=== PATIENT | male | born 1950 | race Caucasian/White ===

== ENCOUNTER 2021-02-16 08:26 | Emergency (ER) | payer OTHER, SELFPAY ==
[2021-02-16] VITALS (55 sets, daily range): BP systolic 89–163; BP diastolic 55–106; PULSE 73–167; RESP 17–56; TEMP 36.9; O2SAT 90–100; BMI 19.2
--- NOTE | 2021-02-16 08:33 | DI.RAD.S_ITS ---
PROCEDURE: XR CHEST 1V INDICATIONS: SOB TECHNIQUE: One view of the chest was acquired. COMPARISON: None. FINDINGS: Surgical changes and devices: None. Lungs and pleura: There is hyperinflation. Rounded appearance of bilateral costophrenic angles are seen suggestive of mild pleural thickening versus trace pleural effusion. No definite focal infiltrate. No pneumothorax. Mediastinum: Mediastinal contours appear normal. Heart size is normal. Bones and chest wall: No suspicious bony lesions. Overlying soft tissues appear unremarkable. IMPRESSION: COPD. No focal infiltrate or pneumothorax. Dictated by: River Perdomo M.D. on 02/16/2021 at 9:11 Approved by: River Perdmoo M.D. on 02/16/2021 at 9:13
--- NOTE | 2021-02-16 08:36 | ED_ITS ---
HPI - General Adult General Chief complaint: Shortness of Breath/Dyspnea Stated complaint: Difficulty breathing, heart palps Time Seen by Provider: 02/16/21 08:28 Source: patient and family Mode of arrival: Wheelchair Limitations: no limitations History of Present Illness HPI narrative: Patient is a 70-year-old has no diagnosed medical problems. Is a current smoker.. Not on home oxygen. Only takes a daily multivitamin here with family for evaluation of shortness of breath and heart palpitations. Per the symptoms have been progressively worsening over the past couple days but significantly worse over the past 24 hours. No fevers. Has been coughing. Vomited once because of the coughing. No abdominal pain. No changes in bowel habits. No urinary symptoms. No headache. No prior no history of heart attacks. No history of strokes. Not on blood thinners. No rashes. Related Data Home Medications Medication Instructions Recorded Confirmed multivitamin,[id number] 1 tab PO DAILY 02/16/21 02/16/21 Allergies Allergy/AdvReac Type Severity Reaction Status Date / Time No Known Drug Allergies Allergy Verified 02/16/21 08:39 Review of Systems Constitutional Comments: No headaches, no fevers Eyes Eyes: Reports system reviewed and no additional complaints, except as documented ENT Ears, Nose, Mouth, and Throat: Reports system reviewed and no additional complaints, except as documented Cardiovascular Comments: No chest pain but is having palpitations Respiratory Comments: Shortness of breath and cough Gastrointestinal Comments: Vomited 1 time because of the coughing, no abdominal complaints Genitourinary Comments: No urinary symptoms Musculoskeletal Musculoskeletal: Reports system reviewed and no additional complaints, except as documented Integumentary/Breasts Skin/Breast: Reports system reviewed and no additional complaints, except as documented Neurologic Neurologic: Reports system reviewed and no additional complaints, except as documented Endocrine Endocrine: Reports system reviewed and no additional complaints, except as documented Hematologic/Lymphatic On Anticoagulants: No Allergic/Immunologic Allergic/Immunologic: Reports system reviewed and no additional complaints, exce pt as documented Patient History Medical History Patient denies medical problems Social History (Updated 02/16/21 @ 08:39 by Sekou Villatoro DO) marital status: Smoking Status: Current every day smoker Exam Initial Vital Signs Initial Vital Signs: Vital Signs Pulse Rate 118 H 02/16/21 08:32 Respiratory Rate 33 H 02/16/21 08:32 Blood Pressure 156/84 H 02/16/21 08:32 Pulse Oximetry 92 02/16/21 08:32 Const General: cooperative, in distress and ill appearing Nutritional Appearance: thin HENMT Head: normal to inspection and normocephalic Eyes General: appearance normal, both eyes and all related structures Chest Other: Barrel chested Resp Effort & Inspection: no audible wheezes, no cough, labored, respiratory distress, retractions, tachypneic and tripod positioning Cardio Rate: regular rate Rhythm: regular rhythm GI Inspection: normal to inspection Palpation: soft Back/Spine/Pelvis Back: normal to inspection Skin General: no rashes or lesions noted Neuro General: patient alert, patient awake, patient oriented x3 and moves all extremities Extrem General: normal to inspection and capillary refill normal Psych Appearance: grossly normal and well kempt Scores GCS Ray coma scale eye opening: Spontaneous Yanira coma scale verbal response: Orientated Yanira coma scale motor response: Obey commands Ray coma scale total score: 15 Course Orders Ordered: ED Orders 02/16/21 10:26 EKG-12 Lead Routine 02/16/21 10:58 EKG-12 Lead Routine 02/16/21 11:02 CT angio chest PE protocol Stat 02/16/21 11:23 ABG [Arterial Blood Gas] Stat 02/16/21 15:11 Urinalysis and Microscopic Stat Urine Culture Stat 02/16/21 16:55 Lactate (Lactic Acid) Stat Diltiazem HCl 125 mg/ Sodium (Chloride) 125 mls @ 5 mls/hr IV TITRATE TARYN; Protocol Last Titration: 02/16/21 16:47 Dose: 5 mg/hr, 5 mls/hr Documented by: Titration: 02/16/21 13:10 Dose: 10 mg/hr, 10 mls/hr Documented by: Admin: 02/16/21 12:10 Dose: 5 mg/hr, 5 mls/hr Documented by: KSCHERE Sodium Chloride (Normal Saline 0.9%) 1,000 mls @ 100 mls/hr IV BOLUS ONE Stop: 02/16/21 22:04 Last Admin: 02/16/21 12:10 Dose: 100 mls/hr Documented by: KSCHERE Sodium Chloride (Normal Saline 0.9%) 1,000 mls @ 1,000 mls/hr IV BOLUS ONE Stop: 02/16/21 18:17 Last Admin: 02/16/21 17:24 Dose: 1,000 mls/hr Documented by: OLIVE Discontinued Medications Albuterol (Albuterol 2.5 Mg/3 Ml Neb (Adult)) 20 mg INH NOW ONE Stop: 02/16/21 09:14 Last Admin: 02/16/21 09:28 Dose: Not Given Documented by: ALEX Albuterol (Albuterol 2.5 Mg/3 Ml Neb (Adult)) 12.5 mg INH NOW ONE Stop: 02/16/21 09:28 Last Admin: 02/16/21 09:30 Dose: 12.5 mg Documented by: ALEX Albuterol (Albuterol 2.5 Mg/3 Ml Neb (Adult)) 2.5 mg INH NOW ONE Stop: 02/16/21 18:04 Albuterol/Ipratropium (Albuterol/Ipratropium 3 Ml Ampul) 3 ml INH Q20M TARYN Stop: 02/16/21 09:26 Last Admin: 02/16/21 09:30 Dose: 3 ml Documented by: Admin: 02/16/21 08:55 Dose: 3 ml Documented by: Admin: 02/16/21 08:45 Dose: 3 ml Documented by: ALEX Diltiazem HCl (Diltiazem 5 Mg/Ml Sdv) 10 mg IV NOW ONE Stop: 02/16/21 11:17 Last Admin: 02/16/21 11:22 Dose: 10 mg Documented by: OLIVE Sodium Chloride (Normal Saline 0.9%) 1,000 mls @ 500 mls/hr IV BOLUS ONE Stop: 02/16/21 11:21 Last Infusion: 02/16/21 12:14 Dose: 0 mls/hr Documented by: Admin: 02/16/21 09:25 Dose: 500 mls/hr Documented by: OLIVE Azithromycin 500 mg/ Dextrose 250 mls @ 250 mls/hr IV NOW ONE Stop: 02/16/21 13:33 Last Infusion: 02/16/21 15:01 Dose: 0 mls/hr Documented by: Admin: 02/16/21 13:41 Dose: 250 mls/hr Documented by: LINDA Sodium Chloride (Normal Saline 0.9%) 1,000 mls @ 500 mls/hr IV BOLUS ONE Stop: 02/16/21 15:44 Last Infusion: 02/16/21 14:55 Dose: 0 mls/hr Documented by: Admin: 02/16/21 13:48 Dose: 500 mls/hr Documented by: OLIVE Ceftriaxone Sodium 1,000 mg/ (Sodium Chloride) 100 mls @ 200 mls/hr IV NOW ONE Stop: 02/16/21 17:19 Last Admin: 02/16/21 17:33 Dose: 200 mls/hr Documented by: LINDA Methylprednisolone (Methylprednisolone 125 Mg/2 Ml Vial) 125 mg IV NOW ONE Stop: 02/16/21 08:33 Last Admin: 02/16/21 08:46 Dose: 125 mg Documented by: FLACO Vital Signs Vital signs: Vital Signs - 8 hr 02/16/21 10:15 02/16/21 10:29 02/16/21 10:30 Pulse Rate 109 H 106 H 106 H Respiratory Rate 32 H 25 H 34 H Blood Pressure 129/68 120/68 Pulse Oximetry 98 100 98 02/16/21 10:45 02/16/21 10:53 02/16/21 11:00 Pulse Rate 125 H 120 H 157 H Respiratory Rate 28 H 29 H 28 H Blood Pressure 158/65 H 130/60 138/67 Pulse Oximetry 98 98 99 02/16/21 11:07 02/16/21 11:13 02/16/21 11:15 Pulse Rate 99 H 167 H 164 H Respiratory Rate 29 H 28 H Blood Pressure 163/106 H 158/92 H Pulse Oximetry 100 98 97 02/16/21 11:22 02/16/21 11:30 02/16/21 11:45 Pulse Rate 155 H 142 H 151 H Respiratory Rate 33 H 25 H Blood Pressure 156/92 H 89/58 L Pulse Oximetry 97 94 02/16/21 11:47 02/16/21 12:00 02/16/21 12:15 Pulse Rate 156 H 153 H 145 H Respiratory Rate 22 24 24 Blood Pressure 105/76 125/73 115/64 Pulse Oximetry 95 95 98 02/16/21 12:16 02/16/21 12:30 02/16/21 12:45 Pulse Rate 160 H 141 H 145 H Respiratory Rate 24 23 25 H Blood Pressure 107/58 L 126/56 L Pulse Oximetry 95 99 96 02/16/21 13:00 02/16/21 13:10 02/16/21 13:15 Pulse Rate 135 H 157 H 135 H Respiratory Rate 23 25 H 22 Blood Pressure 127/55 L Pulse Oximetry 96 96 96 02/16/21 13:16 02/16/21 13:30 02/16/21 13:45 Pulse Rate 147 H 125 H 120 H Respiratory Rate 23 17 20 Blood Pressure 109/64 113/57 L 113/57 L Pulse Oximetry 96 99 98 02/16/21 14:00 02/16/21 14:15 02/16/21 14:30 Pulse Rate 120 H 116 H 79 Respiratory Rate 20 21 20 Blood Pressure 102/59 L 101/59 L 110/57 L Pulse Oximetry 99 99 98 02/16/21 14:45 02/16/21 15:00 02/16/21 15:15 Pulse Rate 77 97 H 103 H Respiratory Rate 19 38 H 32 H Blood Pressure 103/57 L 107/58 L 114/57 L Pulse Oximetry 97 95 98 02/16/21 15:30 02/16/21 15:45 02/16/21 16:00 Pulse Rate 75 77 74 Respiratory Rate 22 23 23 Blood Pressure 105/58 L 103/57 L 103/58 L Pulse Oximetry 98 98 99 02/16/21 16:15 02/16/21 16:30 02/16/21 16:45 Pulse Rate 74 74 76 Respiratory Rate 26 H 21 27 H Blood Pressure 107/58 L 106/58 L 106/57 L Pulse Oximetry 98 99 98 02/16/21 17:00 02/16/21 17:15 02/16/21 17:30 Pulse Rate 74 73 76 Respiratory Rate 24 20 21 Blood Pressure 106/57 L 103/57 L 104/58 L Pulse Oximetry 98 96 97 02/16/21 17:45 Pulse Rate 73 Respiratory Rate 22 Blood Pressure 104/59 L Pulse Oximetry 95 Medical Decision Making Lab Data Lab results reviewed: Yes I reviewed the patient's lab results. Result diagrams: 02/16/21 08:35 02/16/21 08:35 Labs: Lab Results 02/16/21 02/16/21 02/16/21 Range/Units 08:35 08:35 08:35 WBC 9.5 (4.5-11.0) X10^3/uL RBC 4.69 (4.5-5.9) X10^6/uL Hgb 15.1 (13.5-17.5) g/dL Hct 44.6 (41-53) % MCV 95.0 (80-100) fL MCH 32.3 (26-34) PG MCHC 34.0 (30-36) % RDW 13.6 (11.6-14.8) % Plt Count 315 (150-400) X10^3/uL Neut % (Auto) 80.0 H (50-75) % Lymph % (Auto) 9.9 L (25-40) % [place] % (Auto) 9.4 (3-14) % Eos % (Auto) 0.4 L (2-4) % Baso % (Auto) 0.3 (0-2) % Neut # (Auto) 7600 H (0746-9260) /uL Lymph # (Auto) 900 L (6074-6503) /uL [place] # (Auto) 900 (0-900) /uL Eos # (Auto) 0 (0-450) /uL Baso # (Auto) 0 (0-100) /uL ABG pH (7.35-7.45) ABG pCO2 (35-45) mmHg ABG pO2 (80-100) mmHg ABG HCO3 (22-26) mmol/L ABG Total CO2 (21-31) mmol/L ABG O2 Saturation (95-100) % ABG Base Excess (-2-2) mmol/L FiO2 Sodium 137 (137-145) mmol/L Potassium 4.2 (3.4-5.1) mmol/L Chloride 98 (98-107) mmol/L Carbon Dioxide 29 (22-32) mmol/L BUN 12 (9-20) mg/dL Creatinine 0.64 L (0.66-1.25) mg/dL Estimated GFR > 60.0 (>60) mL/min BUN/Creatinine Ratio 18.8 (6-22) Glucose 131 H (80-110) mg/dL Lactate 2.2 H (0.7-2.1) mmol/L Calcium 9.3 (8.4-10.2) mg/dL Total Bilirubin 0.5 (0.2-1.3) mg/dL AST 28 (17-59) IU/L ALT 27 (<50) IU/L Alkaline Phosphatase 78 (38-126) U/L Total Creatine Kinase 65 (55-170) U/L CK-MB (CK-2) TNP CK-MB (CK-2) Rel Index TNP Troponin I < 0.012 (0.01-0.034) ng/mL NT-Pro-B Natriuret Pep 84 (<125) pg/mL Total Protein 7.7 (6.3-8.2) g/dL Albumin 4.4 (3.5-5.0) g/dL Globulin 3.3 (1.7-4.1) g/dL Albumin/Globulin Ratio 1.3 (1.0-2.8) Lipase 68 (23-300) U/L Urine Color Urine Appearance Urine pH (4.5-8.0) Ur Specific [place] (1.000-1.035) Urine Protein (Negative) Urine Glucose (UA) (Negative) g/dL Urine Ketones (NEGATIVE) Urine Occult Blood (Negative) Urine Nitrate (Negative) Urine Bilirubin (NEGATIVE) Urine Urobilinogen (0.2) E.U./dL Ur Leukocyte Esterase (NEGATIVE) Urine RBC (0-5/HPF) Urine WBC (0-5/HPF) Ur Squamous Epith Cells (0-5/HPF) Amorphous Sediment Urine Bacteria (None) Ur Culture Indicated? SARS-CoV-2 (PCR) (Negative) 02/16/21 02/16/21 02/16/21 Range/Units 08:47 08:47 11:15 WBC (4.5-11.0) X10^3/uL RBC (4.5-5.9) X10^6/uL Hgb (13.5-17.5) g/dL Hct (41-53) % MCV (80-100) fL MCH (26-34) PG MCHC (30-36) % RDW (11.6-14.8) % Plt Count (150-400) X10^3/uL Neut % (Auto) (50-75) % Lymph % (Auto) (25-40) % [place] % (Auto) (3-14) % Eos % (Auto) (2-4) % Baso % (Auto) (0-2) % Neut # (Auto) (1873-3100) /uL Lymph # (Auto) (2757-7613) /uL [place] # (Auto) (0-900) /uL Eos # (Auto) (0-450) /uL Baso # (Auto) (0-100) /uL ABG pH (7.35-7.45) ABG pCO2 (35-45) mmHg ABG pO2 (80-100) mmHg ABG HCO3 (22-26) mmol/L ABG Total CO2 (21-31) mmol/L ABG O2 Saturation (95-100) % ABG Base Excess (-2-2) mmol/L FiO2 Sodium (137-145) mmol/L Potassium (3.4-5.1) mmol/L Chloride (98-107) mmol/L Carbon Dioxide (22-32) mmol/L BUN (9-20) mg/dL Creatinine (0.66-1.25) mg/dL Estimated GFR (>60) mL/min BUN/Creatinine Ratio (6-22) Glucose (80-110) mg/dL Lactate 4.4 H* (0.7-2.1) mmol/L Calcium (8.4-10.2) mg/dL Total Bilirubin (0.2-1.3) mg/dL AST (17-59) IU/L ALT (<50) IU/L Alkaline Phosphatase (38-126) U/L Total Creatine Kinase (55-170) U/L CK-MB (CK-2) CK-MB (CK-2) Rel Index Troponin I (0.01-0.034) ng/mL NT-Pro-B Natriuret Pep (<125) pg/mL Total Protein (6.3-8.2) g/dL Albumin (3.5-5.0) g/dL Globulin (1.7-4.1) g/dL Albumin/Globulin Ratio (1.0-2.8) Lipase (23-300) U/L Urine Color Urine Appearance Urine pH (4.5-8.0) Ur Specific [place] (1.000-1.035) Urine Protein (Negative) Urine Glucose (UA) (Negative) g/dL Urine Ketones (NEGATIVE) Urine Occult Blood (Negative) Urine Nitrate (Negative) Urine Bilirubin (NEGATIVE) Urine Urobilinogen (0.2) E.U./dL Ur Leukocyte Esterase (NEGATIVE) Urine RBC (0-5/HPF) Urine WBC (0-5/HPF) Ur Squamous Epith Cells (0-5/HPF) Amorphous Sediment Urine Bacteria (None) Ur Culture Indicated? SARS-CoV-2 (PCR) Negative Negative (Negative) 02/16/21 02/16/21 02/16/21 Range/Units 11:23 15:11 16:55 WBC (4.5-11.0) X10^3/uL RBC (4.5-5.9) X10^6/uL Hgb (13.5-17.5) g/dL Hct (41-53) % MCV (80-100) fL MCH (26-34) PG MCHC (30-36) % RDW (11.6-14.8) % Plt Count (150-400) X10^3/uL Neut % (Auto) (50-75) % Lymph % (Auto) (25-40) % [place] % (Auto) (3-14) % Eos % (Auto) (2-4) % Baso % (Auto) (0-2) % Neut # (Auto) (5388-4879) /uL Lymph # (Auto) (9061-9264) /uL [place] # (Auto) (0-900) /uL Eos # (Auto) (0-450) /uL Baso # (Auto) (0-100) /uL ABG pH 7.36 (7.35-7.45) ABG pCO2 47.4 H (35-45) mmHg ABG pO2 79 L (80-100) mmHg ABG HCO3 27 H (22-26) mmol/L ABG Total CO2 28 (21-31) mmol/L ABG O2 Saturation 95 (95-100) % ABG Base Excess 1.0 (-2-2) mmol/L FiO2 32 Sodium (137-145) mmol/L Potassium (3.4-5.1) mmol/L Chloride (98-107) mmol/L Carbon Dioxide (22-32) mmol/L BUN (9-20) mg/dL Creatinine (0.66-1.25) mg/dL Estimated GFR (>60) mL/min BUN/Creatinine Ratio (6-22) Glucose (80-110) mg/dL Lactate 5.6 H* (0.7-2.1) mmol/L Calcium (8.4-10.2) mg/dL Total Bilirubin (0.2-1.3) mg/dL AST (17-59) IU/L ALT (<50) IU/L Alkaline Phosphatase (38-126) U/L Total Creatine Kinase (55-170) U/L CK-MB (CK-2) CK-MB (CK-2) Rel Index Troponin I (0.01-0.034) ng/mL NT-Pro-B Natriuret Pep (<125) pg/mL Total Protein (6.3-8.2) g/dL Albumin (3.5-5.0) g/dL Globulin (1.7-4.1) g/dL Albumin/Globulin Ratio (1.0-2.8) Lipase (23-300) U/L Urine Color Yellow Urine Appearance Sl cloudy Urine pH 5.5 (4.5-8.0) Ur Specific [place] <=1.005 (1.000-1.035) Urine Protein Trace H (Negative) Urine Glucose (UA) Trace H (Negative) g/dL Urine Ketones Negative (NEGATIVE) Urine Occult Blood 3+ H (Negative) Urine Nitrate Positive H (Negative) Urine Bilirubin Negative (NEGATIVE) Urine Urobilinogen 0.2 (0.2) E.U./dL Ur Leukocyte Esterase 2+ H (NEGATIVE) Urine RBC 1-5/hpf (0-5/HPF) Urine WBC 10-30/hpf H (0-5/HPF) Ur Squamous Epith Cells 0-1 /hpf (0-5/HPF) Amorphous Sediment 1+ Urine Bacteria Occasional (0-1) (None) Ur Culture Indicated? Specimen cultured SARS-CoV-2 (PCR) (Negative) Imaging Data Chest x-ray: Radiologist's Impression: [address] [id number] ReportSigned Patient: Sekuo Nieto AMR#: [id number]: 9Acct:[id number]/Sex: 70 / MDate of Service: 02/16/21Loc: EDAccession Number: [id number] Procedure: XR chest 1V Ordering Provider: Sekou Villatoro D.O. PROCEDURE: XR CHEST 1V INDICATIONS: SOB TECHNIQUE: One view of the chest was acquired. COMPARISON: None. FINDINGS: Surgical changes and devices: None. Lungs and pleura: There is hyperinflation. Rounded appearance of bilateral costophrenic angles are seen suggestive of mild pleural thickening versus trace pleural effusion. No definite focal infiltrate. No pneumothorax. Mediastinum: Mediastinal contours appear normal. Heart size is normal. Bones and chest wall: No suspicious bony lesions. Overlying soft tissues appear unremarkable. IMPRESSION: COPD. No focal infiltrate or pneumothorax. Dictated by: River Perdomo M.D. on 02/16/2021 at 9:11 Approved by: River Perdomo M.D. on 02/16/2021 at 9:13 Addendum chest x-ray: Radiologist's Impression: [address] [id number] ReportAddendum Patient: Sekou Nieto AMR#: [id number]: 9Acct:[id number]/Sex: 70 / MDate of Service: 02/16/21Loc: EDAccession Number: [id number] Procedure: XR chest 1V Ordering Provider: Sekou Villatoro D.O. ADDENDUMThis report includes an Addendum and supersedes previous reports for this exam. PROCEDURE: XR CHEST 1V INDICATIONS: SOB TECHNIQUE: One view of the chest was acquired. COMPARISON: None. FINDINGS: Surgical changes and devices: None. Lungs and pleura: There is hyperinflation. Rounded appearance of bilateral costophrenic angles are seen suggestive of mild pleural thickening versus trace pleural effusion. No definite focal infiltrate. No pneumothorax. Mediastinum: Mediastinal contours appear normal. Heart size is normal. Bones and chest wall: No suspicious bony lesions. Overlying soft tissues appear unremarkable. IMPRESSION: COPD. No focal infiltrate or pneumothorax. Dictated by: River Perdomo M.D. on 02/16/2021 at 9:11 Approved by: River Perdomo M.D. on 02/16/2021 at 9:13 ADDENDUM: 4.6 x 3.9 cm lobulated soft tissue density is seen projecting at right lung base adjacent to right heart border concerning for right lower lobe mass. Findings were discussed with Dr. Villatoro in the ER at 9:30 a.m. On 02/16/2021. CT of chest will be done for further evaluation of this area. Dictated by: River Perdomo M.D. on 02/16/2021 at 9:29 Approved by: River Perdomo M.D. on 02/16/2021 at 9:31 Addendum Dictated By:River Perdomo MDAddendum Signed By:Addendum Cosigned By:DD/ TD/TT: 02/16/2103/29/928 PROCEDURE: XR CHEST 1V INDICATIONS: SOB TECHNIQUE: One view of the chest was acquired. COMPARISON: None. FINDINGS: Surgical changes and devices: None. Lungs and pleura: There is hyperinflation. Rounded appearance of bilateral costophrenic angles are seen suggestive of mild pleural thickening versus trace pleural effusion. No definite focal infiltrate. No pneumothorax. Mediastinum: Mediastinal contours appear normal. Heart size is normal. Bones and chest wall: No suspicious bony lesions. Overlying soft tissues appear unremarkable. IMPRESSION: COPD. No focal infiltrate or pneumothorax. Dictated by: River Perdomo M.D. on 02/16/2021 at 9:11 Approved by: River Perdomo M.D. on 02/16/2021 at 9:13 CT scan - chest: Radiologist's Impression: [address] Scan ReportSigned Patient: Sekou Nieto AMR#: [id number]: 9Acct:[id number]/Sex: 70 / MDate of Service: 02/16/21Loc: EDAccession Number: [id number] Procedure: CT angio chest PE protocol Ordering Provider: Sekou Villatoro D.O. PROCEDURE: CT ANGIO CHEST PE PROTOCOL INDICATIONS: SOB, tachycardia, Right duarte mass seen on CXR TECHNIQUE: After the administration of intravenous contrast, 2 mm thick sections acquired from the pulmonary apices to the posterior costophrenic angles. 3-dimensional maximum intensity projection (MIP) coronal and sagittal reformats were then acquired through the thorax. For radiation dose reduction, the following was used: automated exposure control, adjustment of mA and/or kV according to patient size. COMPARISON: None. FINDINGS: Image quality: Excellent. Pulmonary arteries: Pulmonary arteries are patent without filling defects. The right main pulmonary artery is enlarged measuring 3.2 cm in diameter. Main pulmonary outflow tract and left pulmonary artery are normal caliber. Lungs and pleura: The lungs are hyperinflated and demonstrate moderate centrilobular emphysema. Multi lobulated spiculated mass is present in the posterior right lower lobe measuring 4.9 x 4.5 x 4.3 cm. It surrounds and engulfs bronchovascular structures and contains small foci of gas. It abuts the overlying pleural surface and causes trace amount of pleural thickening. No pleural effusion. Bibasilar pleural tethering due to hyperinflation. There is moderate central bronchial wall thickening bilaterally. The trachea is slightly narrowed suggesting tracheomalacia. Mild mucous at the meggan. Mediastinum: Probable mild right suprahilar adenopathy. No focal mediastinal adenopathy. Heart size is normal, without pericardial effusion. No mediastinal or hilar adenopathy. Thoracic aorta is normal in caliber and enhancement. Esophagus is normal in caliber, without hiatal hernia. Bones and chest wall: No suspicious bony lesions. Degenerative endplate changes. Ribs and thoracic spine appear intact throughout. Thyroid gland is unremarkable.. No axillary or supraclavicular adenopathy. Abdomen: Visualized upper abdominal organs demonstrate coarse calcification in the right adrenal gland. No left adrenal mass. Upper abdominal organs are otherwise normal. IMPRESSION: 1. Moderate emphysematous changes, bronchial wall thickening, and tracheomalacia suggesting COPD. 2. 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 Infection or ischemia felt much less likely. 3. Possible right hilar adenopathy. 4. No pulmonary embolus. Dictated by: Evelia Whipple M.D. on 02/16/2021 at 11:19 Approved by: Evelia Whipple M.D. on 02/16/2021 at 11:29 ECG Data Attestation: I personally reviewed and interpreted this ECG as follows: Interpretation: Initial EKG Sinus tachycardia Ventricular rate 105 Difficult to read secondary to patient's shaking. Has quite a bit of artifact. Unsure if it is sinus rhythm verses atrial flutter however I feel more that this is sinus rhythm with artifact Repeat EKG Sinus tachycardia Ventricular rate 106 Sinus rhythm Occasional PVC Normal axis No ST T wave changes MDM Narrative Medical decision making narrative: Patient was in significant respiratory distress upon arrival. Was retracting. Tachypneic. Hypoxic to the low 90s/upper 80s. Is cachectic appearing. No diagnosed medical problems but this is most likely because he does not see a physician. Takes no medications. Is a current smoker. Has diminished breath sounds bilateral. Received 3 DuoNebs and a 20 mg continuous neb and also Solu-Medrol. This improved his symptoms significantly. Patient is still initially requiring oxygen for support. Chest x-ray shows findings consistent with COPD. There was also concern about a soft tissue mass in the right lower lung caputo. His CTA was obtained and this confirmed a concern for malignancy. This would not be surprising given his smoking history. Patient then developed atrial fibrillation with RVR. Was placed on a diltiazem drip. After several hours on diltiazem he became rate controlled and eventually converted to sinus rhythm. We were able to decrease his diltiazem drip but given his presentation and the upcoming transport we will keep him on this level in to he arrives the new facility. We are also able to reduce his oxygen by nasal cannula. Labs are reassuring. Initial lactate elevated. Repeat shows it increasing. Given his COPD exacerbation he was given azithromycin to cover any potential infection although I do feel this is less likely. Patient did receive 30 cc/kilogram of fluids however he did have decreased urine output. I do suspect that he has a level of dehydration given his tachypnea over the past several days. He 2nd repeat lactate shows that it continues to elevate. Rocephin was added. More fluids were administered. Giv en the new diagnosis of probable lung cancer and his presentation I do feel that transfer to higher level care is warranted. Discussed the case with Dr. Field with [facility] internal Medicine who accepts the patient for transfer. I did discuss the need for transport with the patient and family. They expressed understanding agreement. Patient is stable for transport. Critical Care Time Critical Care Time Critical Care Time: Yes Total Critical Care Time: 45 Attestation: The high probability of a clinically significant, sudden or life threatening deterioration of the respiratory, cardiovascular system(s) required my full and direct attention, intervention and personal management. The aggregate critical care time was 45 minutes. This time is in addition to time spent performing reported procedures but includes the following: [x] Data Review and interpretation [x] Patient assessment and monitoring of vital signs [x] Documentation [x] Medication orders and management Discharge Plan Departure Patient Disposition: [facility] Clinical Impression: COPD exacerbation, Atrial fibrillation with RVR, Lung mass Prescriptions: No Action Complete Multivitamin Tablet 1 tab PO DAILY RF: 0
[2021-02-16] MEDS: ALBUTEROL/IPRATROPIUM 3 ML AMPUL INH ×3 (08:45→09:30)
[2021-02-16] MEDS: methylPREDNISolone 125 MG/2 ML VIAL IV (08:46)
[2021-02-16 08:57] LABS: Add Manual Diff / Slide Review NO; Basophils Absolute Auto 0 /uL (0-100); Basophils Percent Auto 0.3 % (0-2); Eosinophils Absolute Auto 0 /uL (0-450); Eosinophils Percent Auto 0.4 % (2-4); Hematocrit 44.6 % (41-53); Hemoglobin 15.1 g/dL (13.5-17.5); Lymphocytes Absolute Auto 900 /uL (1100-4500); Lymphocytes Percent Auto 9.9 % (25-40); Mean Corpuscular Hemoglobin 32.3 PG (26-34); Monocytes Absolute Auto 900 /uL (0-900); Monocytes Percent Auto 9.4 % (3-14); Neutrophils Absolute Auto 7600 /uL (1500-7000); Platelet Count 315 X10^3/uL (150-400); Red Blood Cell Count 4.69 X10^6/uL (4.5-5.9); Red Cell Distribution Width 13.6 % (11.6-14.8); White Blood Cell Count 9.5 X10^3/uL (4.5-11.0)
[2021-02-16 09:02] LABS: COVID19 -Nasal RAPID Negative (Negative)
--- NOTE | 2021-02-16 09:02 | PC.NURSE ---
reports pt does not see doctors (pt at least 4 or 5 years) is a heavy smoker and has been unable to lay back x 2-3 days. c/o months of exertional shortness of breath. c/o 30-50 lbs weight loss. Pt is tropoding, initial sats in high 80s. Placed on 4 L NC, RT placed neb w/ some relief.
[2021-02-16 09:05] LABS: Lactate (Lactic Acid) 2.2 mmol/L (0.7-2.1)
[2021-02-16 09:06] LABS: Alanine Aminotransferase 27 IU/L (<50); Albumin 4.4 g/dL (3.5-5.0); Albumin Globulin Ratio 1.3 (1.0-2.8); Alkaline Phosphatase 78 U/L (38-126); Aspartate Aminotransferase 28 IU/L (17-59); BUN Creatinine Ratio 18.8 (6-22); Bilirubin Total 0.5 mg/dL (0.2-1.3); Blood Urea Nitrogen 12 mg/dL (9-20); Calcium 9.3 mg/dL (8.4-10.2); Carbon Dioxide 29 mmol/L (22-32); Chloride 98 mmol/L (98-107); Creatine Kinase 65 U/L (55-170); Estimated Glomerular Filt Rate > 60.0 mL/min (>60); Globulin 3.3 g/dL (1.7-4.1); Glucose 131 mg/dL (80-110); HEMOLYSIS 25 (0-50); Lipase 68 U/L (23-300); Potassium 4.2 mmol/L (3.4-5.1); Sodium 137 mmol/L (137-145); Total Protein 7.7 g/dL (6.3-8.2)
[2021-02-16 09:18] LABS: NT-proBNP (BNP-Adult 18+) 84 pg/mL (<125); Troponin I < 0.012 ng/mL (0.01-0.034)
[2021-02-16] MEDS: SODIUM CHLORIDE 0.9% 1,000 ML 500 ML IV ×2 (09:25→13:48)
[2021-02-16] MEDS: ALBUTEROL 2.5 MG/3 ML NEB (ADULT) 12.5 MG INH (09:30)
[2021-02-16 09:41] LABS: COVID19 - ADMIT (NP swab/PCR) Negative (Negative)
--- NOTE | 2021-02-16 10:08 | PC.NURSE ---
At approx 0940 pt sitting over side of bed rec'ing continuous neb. HR noted to increase to 155-160 and regular upon palp. Pt SOB at baseline and in tripod position. SPO2 96% 3L. denies CP. Dr Villatoro made aware. No new orders at this time.
--- NOTE | 2021-02-16 10:25 | PC.NURSE ---
Pt would like (Maddi Nieto) to be DPOA however no formal DPOA document signed at this time. Attempted to contact [facility] but no answer at extension.
[2021-02-16 10:50] LABS: Reflexed Lactate in 2 Hours Y
--- NOTE | 2021-02-16 11:02 | DI.CT.S_ITS ---
PROCEDURE: CT ANGIO CHEST PE PROTOCOL INDICATIONS: SOB, tachycardia, Right duarte mass seen on CXR TECHNIQUE: After the administration of intravenous contrast, 2 mm thick sections acquired from the pulmonary apices to the posterior costophrenic angles. 3-dimensional maximum intensity projection (MIP) coronal and sagittal reformats were then acquired through the thorax. For radiation dose reduction, the following was used: automated exposure control, adjustment of mA and/or kV according to patient size. COMPARISON: None. FINDINGS: Image quality: Excellent. Pulmonary arteries: Pulmonary arteries are patent without filling defects. The right main pulmonary artery is enlarged measuring 3.2 cm in diameter. Main pulmonary outflow tract and left pulmonary artery are normal caliber. Lungs and pleura: The lungs are hyperinflated and demonstrate moderate centrilobular emphysema. Multi lobulated spiculated mass is present in the posterior right lower lobe measuring 4.9 x 4.5 x 4.3 cm. It surrounds and engulfs bronchovascular structures and contains small foci of gas. It abuts the overlying pleural surface and causes trace amount of pleural thickening. No pleural effusion. Bibasilar pleural tethering due to hyperinflation. There is moderate central bronchial wall thickening bilaterally. The trachea is slightly narrowed suggesting tracheomalacia. Mild mucous at the meggan. Mediastinum: Probable mild right suprahilar adenopathy. No focal mediastinal adenopathy. Heart size is normal, without pericardial effusion. No mediastinal or hilar adenopathy. Thoracic aorta is normal in caliber and enhancement. Esophagus is normal in caliber, without hiatal hernia. Bones and chest wall: No suspicious bony lesions. Degenerative endplate changes. Ribs and thoracic spine appear intact throughout. Thyroid gland is unremarkable.. No axillary or supraclavicular adenopathy. Abdomen: Visualized upper abdominal organs demonstrate coarse calcification in the right adrenal gland. No left adrenal mass. Upper abdominal organs are otherwise normal. IMPRESSION: 1. Moderate emphysematous changes, bronchial wall thickening, and tracheomalacia suggesting COPD. 2. 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 Infection or ischemia felt much less likely. 3. Possible right hilar adenopathy. 4. No pulmonary embolus. Dictated by: Evelia Whipple M.D. on 02/16/2021 at 11:19 Approved by: Evelia Whipple M.D. on 02/16/2021 at 11:29
[2021-02-16] MEDS: dilTIAZem 5 MG/ML SDV 10 MG IV (11:22)
[2021-02-16 11:59] LABS: Fractionated Inspired Oxygen 32; HCO3 ABG 27 mmol/L (22-26); Oxygen Saturation ABG 95 % (95-100); PCO2 ABG 47.4 mmHg (35-45); PO2 ABG 79 mmHg (80-100); TCO2 ABG 28 mmol/L (21-31); pH ABG 7.36 (7.35-7.45)
[2021-02-16] MEDS: dilTIAZem 125 MG in SODIUM CHLORIDE 0.9% 100 ML IV (12:10)
[2021-02-16] MEDS: SODIUM CHLORIDE 0.9% 1,000 ML 100 ML IV (12:10)
[2021-02-16 13:32] LABS: Lactate 2HR (Lactic Acid Rflx) 4.4 mmol/L (0.7-2.1)
[2021-02-16] MEDS: AZITHROMYCIN 500 MG in DEXTROSE 5% IN WATER 250 ML IV (13:41)
[2021-02-16 15:20] LABS: Appearance Urine UA SL CLOUDY; Bilirubin Urine UA NEGATIVE (NEGATIVE); Color Urine UA YELLOW; Glucose Urine UA TRACE g/dL (Negative); Ketones Urine UA NEGATIVE (NEGATIVE); Leukocyte Esterase Urine UA 2+ (NEGATIVE); Nitrite Urine UA POSITIVE (Negative); Occult Blood Urine UA 3+ (Negative); Protein Urine UA TRACE (Negative); Specific Gravity Urine UA <=1.005 (1.000-1.035); Urobilinogen Urine UA 0.2 E.U./dL (0.2); pH Urine UA 5.5 (4.5-8.0)
[2021-02-16 15:29] LABS: Amorphous Sediment Urine 1+; Bacteria Urine Occasional (0-1); Culture Indicated Urine Specimen Cultured; RBC Urine 1-5/HPF (0-5/HPF); Squamous Epithelial Cell Urine 0-1 /HPF (0-5/HPF); WBC Urine 10-30/HPF (0-5/HPF)
[2021-02-16 17:16] LABS: Lactate (Lactic Acid) 5.6 mmol/L (0.7-2.1)
[2021-02-16] MEDS: SODIUM CHLORIDE 0.9% 1,000 ML 1000 ML IV (17:24)
[2021-02-16] MEDS: cefTRIAXone 1,000 MG in SODIUM CHLORIDE 0.9% 100 ML 200 ML IV (17:33)
[2021-02-16] MEDS: ALBUTEROL 2.5 MG/3 ML NEB (ADULT) INH (18:10)
--- NOTE | 2021-02-16 18:18 | PC.NURSE ---
BROOM WORKER Note: Patient in need of xfer for higher level of care. Hospitals called for bed status; [facility] called @1205 spoke w/Lydia(house sup) no beds at that time, pt. on wait list [place] called @1223 spoke w/[facility]. No beds until 10/12 am -wait listed. [place] called @1240 spoke w/[facility]. no beds f/u in 4-6 hours. -wait listed. F/u @1626- still no beds. on wait list. [facility] called @1249 spoke w/[facility] No beds f/u in 6-8 hours. Wait listed. [facility] called @1336. No beds. unable to obtain name of [facility] or Fax number to send patient's demographic to be on a wait list. F/u in 4-6 hrs. [facility] called @1350 spoke w/Gretchen no beds- case by case. f/u in 6-8 hours. @1530 images pushed per request. possible bed. per Gret[facility]. @[address]Elizabeth Field. [facility] called - Dr. Field accepted bed at the [facility] [id number]. [facility] ETA:[id number] ALS xfer. called other hospitals to cancel wait list.
--- NOTE | 2021-02-16 18:23 | PC.NURSE ---
Discussed care w/ receiving RN @ , requested diltiazem stay infusing at current rate of 5 mg / hour unless HR < 60 or MAP < 60. Provider aware and agree, passed along to EMS.
[2021-02-16 18:57] LABS: Reflexed Lactate in 2 Hours Y
== END 2021-02-16 18:50 | disposition short-term general hospital (02) ==
PROVIDERS: Emergency Provider Emergency Medicine
DX: J44.1 Chronic obstructive pulmonary disease with (acute) exacerbation (principal); I48.91 Unspecified atrial fibrillation; R91.8 Other nonspecific abnormal finding of lung field; R00.2 Palpitations; R11.10 Vomiting, unspecified; Z20.822 Contact with and (suspected) exposure to COVID-19
CPT/HCPCS: 36415; 36600; 71045; 71275; 80053; 81001; 82550; 82805; 83605; 83690; 83880; 84484; 85025; 87040; 87077; 87086; 87186; 87635; 93005; 93010; 94640; 96361; 96365; 96366; 96367; 96375; 99285; 99291; C9803; J0696; J2930; J7613; Q9967